=== PATIENT | male | born 1985 | race Caucasian/White ===

== ENCOUNTER 2017-08-06 00:26 | Emergency (ER) | payer OTHER ==
[2017-08-06] MEDS: LIDOCAINE 1%/EPI 30 ML INJ INJ (02:52)
== END 2017-08-06 04:05 | disposition home or self-care (01) ==
LOC: E/R 00:26
DX: T81.89XA Other complications of procedures, not elsewhere classified, initial encounter (principal); Y82.8 Other medical devices associated with adverse incidents; Z87.891 Personal history of nicotine dependence
CPT/HCPCS: 99284; Z7610